=== PATIENT | female | born 1970 | race Caucasian/White ===

== ENCOUNTER 2017-01-26 10:44 | Outpatient (CLI) | payer BC ==
[2017-01-26 18:08] LABS: BASOPHILS # (AUTO) 0.1 10^3/uL (0.0-0.1); BASOPHILS % (AUTO) 0.6 %; EOSINOPHILS # (AUTO) 0.2 10^3/uL (0.0-0.7); EOSINOPHILS % (AUTO) 2.3 %; HGB - HEMOGLOBIN 14.2 g/dL (12.0-16.0); LYMPHOCYTES # (AUTO) 2.5 10^3/uL (1.5-3.5); LYMPHOCYTES % (AUTO) 26.8 %; MEAN CORPUSCULAR HGB CONC 33.1 g/dL (32.0-36.0); MEAN CORPUSCULAR VOLUME 90.7 fL (81.0-99.0); MEAN PLATELET VOLUME 7.9 fL (7.9-10.8); MONOCYTES # (AUTO) 0.5 10^3/uL (0.0-1.0); MONOCYTES % (AUTO) 5.1 %; NEUTROPHILS % (AUTO) 65.2 %; NUCLEATED RED BLOOD CELLS AUTO 0.1 /100WBC; RED BLOOD COUNT 4.74 10^6/uL (4.20-5.40); RED CELL DISTRIBUTION WIDTH 13.5 % (12.0-15.0); UNCORRECTED WHITE BLOOD COUNT 9.3 x10^3/uL; WHITE BLOOD COUNT 9.3 x10^3/uL (4.8-10.8)
[2017-01-26 18:27] LABS: ALBUMIN/GLOBULIN RATIO 1.3 (1.0-2.2); BUN - BLOOD UREA NITROGEN 11 mg/dL (6-20); CALCIUM 8.9 mg/dL (8.5-10.3); CARBON DIOXIDE - CO2 27 mmol/L (21-32); CHLORIDE 105 mmol/L (101-111); CHOL/HDL RATIO 3.5 (<4.4); CHOLESTEROL 156 mg/dL; GFR - MDRD 60 (>89); GLUCOSE 107 mg/dL (70-100); HDL CHOLESTEROL 45 mg/dL; LDL/HDL RATIO 1.9 (<4.4); POTASSIUM 3.7 mmol/L (3.5-5.0); SODIUM 139 mmol/L (135-145); TOTAL PROTEIN 6.8 g/dL (6.7-8.2); TRIGLYCERIDES 126 mg/dL; VLDL CHOLESTEROL 25 mg/dL
[2017-01-26 18:53] LABS: THYROID STIMULATING HORMONE 2.45 uIU/mL (0.34-5.60)
[2017-01-26 19:01] LABS: FOLLICLE STIMULATING HORMONE 7.49 mIU/mL
[2017-01-26 19:02] LABS: LUTEINIZING HORMONE 7.14 mIU/mL
== END 2017-01-26 10:45 | disposition home or self-care (01) ==
LOC: LAB.F 10:44
PROVIDERS: ATTEND Physician Assistant Medical
DX: Z51.81 Encounter for therapeutic drug level monitoring (principal); N95.1 Menopausal and female climacteric states; E03.9 Hypothyroidism, unspecified
CPT/HCPCS: 36415; 80053; 80061; 82306; 82670; 83001; 83002; 84443; 85025

== ENCOUNTER 2017-02-09 08:28 | Outpatient (CLI) | payer BC ==
--- NOTE | 2017-02-10 13:58 | Mammography Report ---
DIGITAL SCREENING MAMMOGRAM: 02/09/2017 CLINICAL INDICATION: A 46-year-old for screening. COMPARISON: 02/2014 TECHNIQUE: Routine CC and MLO projections were obtained of the breasts. FINDINGS: The breasts demonstrate scattered fibroglandular densities bilaterally. Coarse and puncta te, typically benign calcifications are present. Intramammary lymph node in the right upper outer qu adrant is stable. No suspicious masses, clustered microcalcifications, or regions of architectural d istortion are identified. IMPRESSION: BENIGN FINDINGS. RECOMMENDATION: Routine annual screening unless otherwise clinically indicated. BIRADS CATEGORY 2 - BENIGN FINDINGS. STANDARD QUALIFYING STATEMENTS 1. This examination was reviewed with the aid of Computer-Aided Detection (CAD). 2. A negative or benign imaging report should not delay biopsy if clinically suspicious findings are present. Consider surgical consultation if warranted. More than 5% of cancers are not identified by i maging. 3. Dense breasts may obscure an underlying neoplasm. JOB #: [id number] EXT JOB #:[id number]
== END 2017-02-09 08:29 | disposition home or self-care (01) ==
LOC: DI.S 08:28
PROVIDERS: ATTEND Physician Assistant Medical
DX: Z12.31 Encounter for screening mammogram for malignant neoplasm of breast (principal)
CPT/HCPCS: 77067

== ENCOUNTER 2021-06-14 08:00 | Outpatient (CLI) | payer BC ==
--- NOTE | 2021-06-14 13:54 | XRAY Report ---
PROCEDURE: Lumbar Spine 2 View INDICATIONS: LUMBOSACRAL RADICULOPATHY TECHNIQUE: 3 views of the lumbar spine were acquired. COMPARISON: None. FINDINGS: Bones: 5 [id number] vertebrae are present. Moderate scoliosis. Exaggerated lumbar spine lordosi s. Multilevel vertebral body osteophytes. Minimal retrolisthesis of L2 on L3. No vertebral body comp ression fractures. No suspicious bony lesions. Soft tissues: Overlying bowel gas pattern is normal. No suspicious soft tissue calcifications. IMPRESSION: Moderate scoliosis and moderate degenerative change. Reviewed by: Danis Barker MD on 06/14/2021 1:52 PM PST Approved by: Danis Barker MD on 06/14/2021 1:52 PM PST Station ID: [id number]
== END 2021-06-14 23:59 ==
LOC: DI.S 08:00
PROVIDERS: ATTEND Registered Nurse
DX: M47.26 Other spondylosis with radiculopathy, lumbar region (principal)

== ENCOUNTER 2021-08-05 14:33 | Outpatient (CLI) | payer BC ==
--- NOTE | 2021-08-06 17:02 | Ultrasound Report ---
PROCEDURE: Pelvic w/Transvaginal INDICATIONS: ABN UTERINE BLEEDING TECHNIQUE: Real-time scanning was performed of the pelvic organs, with image documentation. Additional endovagi nal scanning was necessary due to incomplete visualization of the adnexal and endometrial structures by transabdominal scanning. COMPARISON: None. FINDINGS: Transabdominal scanning: Limited scanning through the kidneys shows no hydronephrosis. No pathologi c free abdominal or pelvic fluid. Endovaginal scanning: Uterus: Uterus is enlarged in size at 12.0 x 5.5 x 8.3 cm. The endometrium measures 18.8 mm in comb ined thickness. 6.2 x 4.3 x 6.2 cm right posterior intramural uterine fibroid. 1.6 x 1.5 x 1.4 cm mid intramural uterine fibroid. Nabothian cysts incidentally noted. Ovaries: Right ovary measures 8.0 x 5.0 x 4.5 cm with total volume of 93.3 cc. Left ovary measures 3 .4 x 2.1 x 2.3 cm with total volume of 8.14 cm. There are 2 right ovarian cyst measuring 5.3 x 3.5 x 4.2 and 3.4 x 1.9 x 2.4 cm. There is a single left ovarian cyst measuring 1.6 x 1.3 x 1.4 cm. IMPRESSION: 1. Uterine fibroids. 2. Mild endometrial thickening to 18.8 mm. Recommend gynecologic consultation. 3. Multiple bilateral ovarian cysts including a large right ovarian cyst. Recommend follow-up ultraso und in 4-6 weeks to ensure resolution of the cyst. Reviewed by: Samara Smith MD, PhD on 08/06/2021 5:01 PM PST Approved by: Samara Smith MD, PhD on 08/06/2021 5:01 PM PST Station ID: [id number]
== END 2021-08-05 14:34 | disposition home or self-care (01) ==
LOC: DI 14:33
PROVIDERS: ATTEND Obstetrics & Gynecology
DX: N93.9 Abnormal uterine and vaginal bleeding, unspecified (principal); D25.1 Intramural leiomyoma of uterus; R93.89 Abnormal findings on diagnostic imaging of other specified body structures; N83.202 Unspecified ovarian cyst, left side; N83.201 Unspecified ovarian cyst, right side

== ENCOUNTER 2021-09-14 13:02 | Outpatient (CLI) | payer BC ==
--- NOTE | 2021-09-15 16:44 | Mammography Report ---
BILATERAL DIGITAL SCREENING MAMMOGRAM 3D/2D: 09/14/2021 CLINICAL: Routine screening. Comparison is made to exams dated: 02/09/2017 mammogram and 03/21/2014 mammogram - [facility]. There are scattered fibroglandular elements in both breasts. There is a focal asymmetry in the left breast central to the nipple middle depth. No other significant masses, calcifications, or other findings are seen in either breast. IMPRESSION: INCOMPLETE: NEEDS ADDITIONAL IMAGING EVALUATION The focal asymmetry in the left breast is indeterminate. Additional views with possible ultrasound a re recommended. This exam was interpreted at Station ID: [id number]. NOTE: For mammograms, a report in lay terms will be sent to the patient. Approximately 15% of breast malignancies will not be visualized mammographically. In the management of a palpable breast mass, a negative mammogram must not discourage biopsy of a clinically suspicious lesion. Electronically Signed By: Judith Ceron M.D. lk/:09/14/2021 16:26:23 ACR BI-RADS Category 0: Incomplete 3340F PARENCHYMAL PATTERN: (A) - The breast(s) demonstrate(s) scattered fibroglandular densities. BI-RADS CATEGORY: (0) - 0 Mammo and [place] [id number] Immediate follow-up LATERALITY: (B)
== END 2021-09-14 13:03 | disposition home or self-care (01) ==
LOC: DI.S 13:02
PROVIDERS: ATTEND Obstetrics & Gynecology
DX: Z12.31 Encounter for screening mammogram for malignant neoplasm of breast (principal); R92.8 Other abnormal and inconclusive findings on diagnostic imaging of breast

== ENCOUNTER 2021-11-25 18:48 | Outpatient (CLI) | payer BC ==
--- NOTE | 2021-11-26 12:29 | Ultrasound Report ---
PROCEDURE: Pelvic w/Transvaginal INDICATIONS: Ovarian cyst TECHNIQUE: Real-time scanning was performed of the pelvic organs, with image documentation. Additional endovagi nal scanning was necessary due to incomplete visualization of the adnexal and endometrial structures by transabdominal scanning. COMPARISON: 08/05/2021 pelvic ultrasound FINDINGS: The uterine body measures approximately 5.6 x 6.5 x 11.4 cm and is anteverted. Markedly heterogenous uterus There are two intramural uterine fibroids, largest in the right posterior uterine wall measuri ng 5.3 x 4.2 x 4.9 cm (previously measured at 6.2 x 4.3 x 6.2 cm). Previously seen small midline uter ine fibroid appears grossly unchanged but is not well visualized. The endometrial stripe complex isabelle ures approximately 14 millimeters in double layer thickness. Right ovary measures 3.3 x 5.3 x 7.4 cm. Most of the right ovarian volume is comprised by two markedl y hypoechoic masses which demonstrate fairly uniform low-level internal echoes with enhanced three so und transmission. These likely represent cysts although endometriomas could have a similar appearance . The masses abut one another and measure approximately 3.3 x 3.7 x 4.3 cm and 3.6 x 3.4 x 4.0 cm. Left ovary is not well visualized, measuring approximately 2.7 x 3.4 x 1.5 cm. IMPRESSION: Limited exam secondary to patient body habitus. Enlarged markedly heterogenous uterus which is suggestive of possible adenomyosis or potentially disc rete fibroids. Endometrium measuring up to 14 mm in double layer thickness. This is unexpected in a patient of this age and endometrial carcinoma will need clinical exclusion. No significant change in appearance of two previously described fibroids when allowing for difference s in technique. Two approximately 3-4 cm right ovarian masses are likely hemorrhagic cysts or endometriomas. These ma y represent the cyst seen in the right ovary seen previously, although this is not definitive. Reviewed by: Andrae Walker MD on 11/26/2021 12:28 PM PDT Approved by: Andrae Walker MD on 11/26/2021 12:28 PM PDT Station ID: [id number]
== END 2021-11-25 18:49 | disposition home or self-care (01) ==
LOC: DI 18:48
PROVIDERS: ATTEND Obstetrics & Gynecology
DX: N83.291 Other ovarian cyst, right side (principal); N83.292 Other ovarian cyst, left side; N85.2 Hypertrophy of uterus; R93.89 Abnormal findings on diagnostic imaging of other specified body structures; D25.1 Intramural leiomyoma of uterus

== ENCOUNTER 2022-06-09 14:32 | Outpatient (CLI) | payer BC ==
--- NOTE | 2022-06-09 16:50 | Ultrasound Report ---
PROCEDURE: Pelvic w/Transvaginal INDICATIONS: OVARIAN CYST TECHNIQUE: Real-time scanning was performed of the pelvic organs, with image documentation. Additional endovagi nal scanning was necessary due to incomplete visualization of the adnexal and endometrial structures by transabdominal scanning. COMPARISON: 11/25/2021 FINDINGS: Uterus: Uterus is anteverted and enlarged at 12.8 x 6.0 x 7.9 cm. Left anterior intramural fibroid m easuring 23 mm. Right posterior fundal intramural fibroid measuring 53 mm. The endometrium measures 1 7 mm in combined thickness. Ovaries: The right ovary measures 4.2 x 3.3 x 3.2 cm, with a calculated ovarian volume of 23.4 cc. The left ovary measures 2.8 x 1.1 x 2.1 cm, with a calculated ovarian volume of 3.4 cc. Right ovarian cyst measuring 36 mm.. Less than 12 follicles can be seen in each ovary. No adnexal masses are see n. Other: No pathologic free abdominal or pelvic fluid. IMPRESSION: 1. Right ovarian cyst not significantly changed. 2. Uterine fibroids. Reviewed by: Kindra Lerner MD on 06/09/2022 4:48 PM PST Approved by: Kindra Lerner MD on 06/09/2022 4:48 PM PST Station ID: [id number]
== END 2022-06-09 14:33 | disposition home or self-care (01) ==
LOC: DI 14:32
PROVIDERS: ATTEND Obstetrics & Gynecology
DX: N83.291 Other ovarian cyst, right side (principal); D25.1 Intramural leiomyoma of uterus

== ENCOUNTER 2023-03-29 17:56 | Outpatient (CLI) | payer BC ==
--- NOTE | 2023-03-30 11:44 | Ultrasound Report ---
PROCEDURE: Pelvic w/Transvaginal INDICATIONS: AUB TECHNIQUE: Real-time scanning was performed of the pelvic organs, with image documentation. Additional endovagi nal scanning was necessary due to incomplete visualization of the adnexal and endometrial structures by transabdominal scanning. COMPARISON: Pelvic ultrasound 06/09/2022, 11/25/2021 FINDINGS: Uterus: Uterus is anteverted and enlarged in size at 12.3 x 6.4 x 9.6 cm. The myometrium is heterog eneous. The endometrium measures 20 mm in combined thickness. Right posterior intramural fibroid me asuring 7.6 x 5.4 x 7.6 cm, previously 5.3 x 4.2 x 4.9 cm. Additional smaller midline intramural fibr oid measuring 2 cm, previously 2.3 cm. Ovaries: The right ovary measures 7.2 x 4.4 x 6 cm, with a calculated ovarian volume of 99 cc. The left ovary measures 3 x 1.8 x 2.5 cm, with a calculated ovarian volume of 7 cc. The ovaries have a n ormal sonographic appearance. Less than 12 follicles can be seen in each ovary. No adnexal masses a re seen. Anechoic left ovarian cystic lesions without complex features measuring 4 x 4.7 x 4.8 cm and 2.2 x 2.2 x 2.5 cm. Other: No pathologic free abdominal or pelvic fluid. IMPRESSION: Thickened endometrium. Consider tissue sampling. Interval growth of the dominant intramural fibroid on the right, posterior margin measuring 7.6 cm, p reviously 5.3 cm. Consider MRI given rate of growth. Simple appearing right ovarian cystic lesions. O-RADS 2. Reviewed by: Ramirez Rivera on 03/30/2023 11:42 AM PDT Approved by: Ramirez Rivera on 03/30/2023 11:42 AM PDT Station ID: [id number]
== END 2023-03-29 17:57 | disposition home or self-care (01) ==
LOC: DI 17:56
PROVIDERS: ATTEND Obstetrics & Gynecology
DX: N93.9 Abnormal uterine and vaginal bleeding, unspecified (principal); R93.89 Abnormal findings on diagnostic imaging of other specified body structures; D25.1 Intramural leiomyoma of uterus; N83.291 Other ovarian cyst, right side

== ENCOUNTER 2023-06-22 17:38 | Outpatient (CLI) | payer BC ==
[2023-06-22 18:12] LABS: BASOPHILS # (AUTO) 0.1 10^3/uL (0.0-0.1); BASOPHILS % (AUTO) 0.5 %; EOSINOPHILS # (AUTO) 0.3 10^3/uL (0.0-0.7); EOSINOPHILS % (AUTO) 2.9 %; HCT - HEMATOCRIT 39.8 % (37.0-47.0); HGB - HEMOGLOBIN 12.7 g/dL (12.0-16.0); LYMPHOCYTES % (AUTO) 25.3 %; MEAN CORPUSCULAR HEMOGLOBIN 28.5 pg (27.0-31.0); MEAN CORPUSCULAR HGB CONC 31.9 g/dL (32.0-36.0); MEAN CORPUSCULAR VOLUME 89.2 fL (81.0-99.0); MEAN PLATELET VOLUME 9.3 fL (7.9-10.8); MONOCYTES # (AUTO) 0.6 10^3/uL (0.0-1.0); MONOCYTES % (AUTO) 5.3 %; NEUTROPHILS # (AUTO) 7.8 10^3/uL (1.5-6.6); NEUTROPHILS % (AUTO) 65.7 %; PLT - PLATELET COUNT 334 10^3/uL (130-450); RED BLOOD COUNT 4.46 10^6/uL (4.20-5.40); RED CELL DISTRIBUTION WIDTH 13.2 % (12.0-15.0); WHITE BLOOD COUNT 11.8 x10^3/uL (4.8-10.8)
[2023-06-22 18:28] LABS: HCG UR QUAL NEGATIVE
== END 2023-06-22 17:39 | disposition home or self-care (01) ==
LOC: LAB 17:38
PROVIDERS: ATTEND Obstetrics & Gynecology
DX: Z01.812 Encounter for preprocedural laboratory examination (principal); N93.9 Abnormal uterine and vaginal bleeding, unspecified; D25.1 Intramural leiomyoma of uterus
CPT/HCPCS: 36415; 81025; 85025